=== PATIENT | male | born 1980 | race American Indian/Alaskan Native ===

== ENCOUNTER 2017-01-13 02:48 | Emergency (ER) | payer MEDICAID ==
[2017-01-13 03:46] LABS: Urine Drugs of Abuse Note Disclamer
[2017-01-13 03:50] LABS: Basophils % (Auto) 0.6 % (0.0-1.8); Eosinophils % (Auto) 1.3 % (0.0-4.3); Hematocrit 37.1 % (35.5-45.6); Hemoglobin 12.5 gm/dl (11.8-15.2); Mean Corpuscular HGB Conc 34 % (32-34); Mean Corpuscular Hemoglobin 28 pg (28-32); Mean Corpuscular Volume 84 fl (84-94); Platelet Count 340 K/mm3 (140-440); Red Blood Count 4.42 M/mm3 (3.65-5.03); Red Cell Distribution Width 13.5 % (13.2-15.2); White Blood Count 7.6 K/mm3 (4.5-11.0)
[2017-01-13 04:03] LABS: Bilirubin,Urine NEG (Negative); Blood,Urine NEG (Negative); Ketones,Urine NEG (Negative); Leukocyte Esterase,Urine NEG (Negative); Mucus,Urine FEW /HPF; Nitrite,Urine NEG (Negative); Protein,Urine <15 mg/dL mg/dL (Negative); RBC,Urine < 1.0 /HPF (0.0-6.0); WBC,Urine < 1.0 /HPF (0.0-6.0)
[2017-01-13 04:10] LABS: Anion Gap 17 mmol/L; Blood Urea Nitrogen 11 mg/dL (9-20); Calcium 9.1 mg/dL (8.4-10.2); Carbon Dioxide 25 mmol/L (22-30); Chloride 95.6 mmol/L (98-107); Glucose 104 mg/dL (75-100); Sodium 134 mmol/L (137-145)
[2017-01-13 08:06] VITALS: BP 135/82
--- NOTE | 2017-01-13 08:14 | Emergency Department Report ---
ED Psych HPI - General Chief Complaint: Psych Stated Complaint: MEDICAL CLEARANCE Time Seen by Provider: 01/13/17 08:11 Source: family Mode of arrival: Ambulatory - History of Present Illness Initial Comments: This patient was released from incarceration yesterday. Apparently he was on lockdown for psychosis and being treated with antipsychotic medications. Upon release he according to his has a court order for psychiatric hospitalization. He went to [place]. Requested medical clearance. Patient has no specific complaint at this time. He has a very distracted stair. He denies paranoid ideation. However, his states that he has been paranoid and psychotic. He however denies visual or auditory hallucinations. The nurse states he has been agitated. states the patient's diagnosis is bipolar disorder and schizophrenia. MD Complaint: other -: week(s) Associated Psychiatric Symptoms: other History of same: Yes Quality: constant Improves With: none Worsens With: none Context: other (recent incarceration) Associated Symptoms: denies other symptoms Treatments Prior to Arrival: other (see above) - Related Data Allergies Allergy/AdvReac Type Severity Reaction Status Date / Time aspirin Allergy Rash Verified 01/13/17 02:55 zinc Allergy Rash Verified 01/13/17 02:55 ED Review of Systems ROS: Stated complaint: MEDICAL CLEARANCE Other details as noted in HPI Comment: All other systems reviewed and negative (the patient denies any specific symptoms however limited due to acute psychosis) ED Past Medical Hx - Past Medical History Previous Medical History?: Yes Hx Psychiatric Treatment: Yes (Bipolar, Schizophrenia) - Surgical History Past Surgical History?: Yes Additional Surgical History: [place] Teeth - Social History Smoking Status: Current Some Day Smoker Substance Use Type: Marijuana ED Physical Exam - General Limitations: No Limitations General appearance: alert (hypervigilant), other (distracted and somewhat agitated) - Head Head exam: Present: atraumatic, normocephalic - Eye Eye exam: Present: normal appearance, PERRL, EOMI. Absent: scleral icterus - ENT ENT exam: Present: normal exam, mucous membranes moist - Neck Neck exam: Present: normal inspection. Absent: tenderness, meningismus - Respiratory Respiratory exam: Present: normal lung sounds bilaterally. Absent: respiratory distress - Cardiovascular Cardiovascular Exam: Present: regular rate, normal rhythm. Absent: systolic murmur, diastolic murmur, rubs, gallop - GI/Abdominal GI/Abdominal exam: Present: soft, normal bowel sounds. Absent: distended, tenderness, guarding, rebound, rigid - Rectal Rectal exam: Present: deferred - Extremities Exam Extremities exam: Present: normal inspection - Back Exam Back exam: Present: normal inspection - Neurological Exam Neurological exam: Present: alert, oriented X3, CN II-XII intact, normal gait. Absent: motor sensory deficit - Psychiatric Psychiatric exam: Present: normal affect, normal mood - Skin Skin exam: Present: warm, dry, intact, normal color. Absent: rash ED Course Vital Signs 01/13/17 01/13/17 01/13/17 02:55 08:05 10:20 Temperature 99.0 F Pulse Rate 84 71 Respiratory 18 20 18 Rate Blood Pressure 137/88 135/82 [Right] O2 Sat by Pulse 100 100 Oximetry - Reevaluation(s) Reevaluation #1: The patient was given Geodon. He was cooperative with this. Still awaiting mental health counselor for assessment. 1013 is initiated. 01/13/17 11:45 ED Medical Decision Making - Lab Data Result diagrams: 01/13/17 03:31 01/13/17 03:31 Laboratory Results - last 24 hr 01/13/17 01/13/17 01/13/17 03:31 03:31 03:31 WBC 7.6 RBC 4.42 Hgb 12.5 Hct 37.1 MCV 84 MCH 28 MCHC 34 RDW 13.5 Plt Count 340 Lymph % (Auto) 23.4 [place] % (Auto) 13.8 H Eos % (Auto) 1.3 Baso % (Auto) 0.6 Lymph # 1.8 [place] # 1.0 H Eos # 0.1 Baso # 0.0 Seg Neutrophils % 60.9 Seg Neutrophils # 4.6 Sodium 134 L Potassium 4.0 Chloride 95.6 L Carbon Dioxide 25 Anion Gap 17 BUN 11 Creatinine 1.0 Estimated GFR > 60 BUN/Creatinine Ratio 11.00 Glucose 104 H Calcium 9.1 Urine Color Urine Turbidity Urine pH Ur Specific [place] Urine Protein Urine Glucose (UA) Urine Ketones Urine Blood Urine Nitrite Urine Bilirubin Urine Urobilinogen Ur Leukocyte Esterase Urine WBC (Auto) Urine RBC (Auto) Urine Mucus Urine Opiates Screen Urine Methadone Screen Ur Barbiturates Screen Ur Phencyclidine Scrn Ur Amphetamines Screen U Benzodiazepines Scrn Urine Cocaine Screen U Marijuana (THC) Screen Drugs of Abuse Note Plasma/Serum Alcohol < 0.01 01/13/17 01/13/17 Unknown Unknown WBC RBC Hgb Hct MCV MCH MCHC RDW Plt Count Lymph % (Auto) [place] % (Auto) Eos % (Auto) Baso % (Auto) Lymph # [place] # Eos # Baso # Seg Neutrophils % Seg Neutrophils # Sodium Potassium Chloride Carbon Dioxide Anion Gap BUN Creatinine Estimated GFR BUN/Creatinine Ratio Glucose Calcium Urine Color Yellow Urine Turbidity Clear Urine pH 6.0 Ur Specific [place] 1.016 Urine Protein <15 mg/dl Urine Glucose (UA) Neg Urine Ketones Neg Urine Blood Neg Urine Nitrite Neg Urine Bilirubin Neg Urine Urobilinogen 4.0 Ur Leukocyte Esterase Neg Urine WBC (Auto) < 1.0 Urine RBC (Auto) < 1.0 Urine Mucus Few Urine Opiates Screen Presumptive negative Urine Methadone Screen Presumptive negative Ur Barbiturates Screen Presumptive negative Ur Phencyclidine Scrn Presumptive negative Ur Amphetamines Screen Presumptive negative U Benzodiazepines Scrn Presumptive negative Urine Cocaine Screen Presumptive negative U Marijuana (THC) Screen Presumptive negative Drugs of Abuse Note Disclamer Plasma/Serum Alcohol Critical care attestation.: If time is entered above; I have spent that time in minutes in the direct care of this critically ill patient, excluding procedure time. ED Disposition Clinical Impression: Acute psychosis Schizophrenia Qualifiers: Schizophrenia type: unspecified Qualified Code(s): F20.9 - Schizophrenia, unspecified Disposition: DC/TX PSY HOSP/PSY UNIT Is pt being admited?: No Does the pt Need Aspirin: No Condition: Stable Referrals: PRIMARY CARE, [Primary Care Provider] - 3-5 Days Time of Disposition: 11:46
[2017-01-13] MEDS ORDERED: WATER FOR INJ (PF) 10 ML ONE (11:15)
[2017-01-13] MEDS ORDERED: GEODON IM PRN ×2 (11:17→11:47)
[2017-01-13] MEDS ORDERED: TYLENOL PO PRN (11:47)
[2017-01-13] MEDS ORDERED: ALUM-MAG HYDROX-SIMETH 200-200-20MG/5ML PO PRN (11:47)
[2017-01-13] MEDS ORDERED: MILK OF MAGNESIA PO PRN (11:47)
[2017-01-13] MEDS ORDERED: COGENTIN IM STA (11:54)
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
[2017-01-13] MEDS ORDERED: BENADRYL IM ONE (16:26)
== END 2017-01-13 19:21 ==
LOC: EEVIPCON 02:48 → ED 02:48
DX: F23 Brief psychotic disorder (principal); F20.9 Schizophrenia, unspecified; F31.9 Bipolar disorder, unspecified; F17.200 Nicotine dependence, unspecified, uncomplicated; F12.10 Cannabis abuse, uncomplicated; Z88.6 Allergy status to analgesic agent; Z88.8 Allergy status to other drugs, medicaments and biological substances
CPT/HCPCS: 36415; 80048; 80307; 81001; 82550; 85025; 96372; 99285; G0480; J0515; J1200; J3486; 80320

== ENCOUNTER 2017-01-21 16:19 | Emergency (ER) | payer MEDICAID ==
[2017-01-21] MEDS ORDERED: PEPCID PO ONE (17:21)
[2017-01-21] MEDS ORDERED: DELTASONE PO ONE (17:21)
[2017-01-21] MEDS ORDERED: BENADRYL PO ONE (17:22)
[2017-01-21] MEDS ORDERED: NACL 0.9% 1000 ML 1,000 ML IV ONE ×2 (17:31→19:26)
--- NOTE | 2017-01-21 17:32 | Emergency Department Report ---
ED Psych HPI - General Chief Complaint: Allergic Reaction Stated Complaint: ALLERGIC REACTION/DIIB Time Seen by Provider: 01/21/17 16:56 Source: patient Mode of arrival: Ambulatory - History of Present Illness Initial Comments: Patient is a 36-year-old male recently diagnosed with bipolar and schizophrenia coming to us from [place] off for possible medication allergy. Patient reports he 's been started on invega, Risperdal, and Depakote and now is complaining of diffuse edema to his face arms and legs, and a uneasy feeling in his throat. Patient reports he is complaining about the symptoms for the last 2 weeks but was told it was just side effects of the medication. Today the patient was moved from the main floor to the loft and with these complications and her felt uncomfortable treating the patient and sent the patient to the ER for evaluation. Otherwise no fevers, chills, nausea, vomiting, dizziness, excessive drooling, dysphagia, dysphonia, shortness of breath, chest pain, abdominal pain, diarrhea, trauma, or sick contacts. - Related Data Previous Rx's Medication Instructions Recorded Last Taken Type Benztropine [Cogentin] 2 mg PO BID #14 tab 01/21/17 Unknown Rx Allergies Allergy/AdvReac Type Severity Reaction Status Date / Time aspirin Allergy Rash Verified 01/13/17 02:55 zinc Allergy Rash Verified 01/13/17 02:55 ED Review of Systems ROS: Stated complaint: ALLERGIC REACTION/DIIB Other details as noted in HPI Comment: All other systems reviewed and negative ED Past Medical Hx - Past Medical History Hx Psychiatric Treatment: Yes (Bipolar, Schizophrenia) - Surgical History Additional Surgical History: [place] Teeth - Social History Smoking Status: Never Smoker Substance Use Type: None - Medications Home Medications: Home Medications Medication Instructions Recorded Confirmed Last Taken Type Benztropine [Cogentin] 2 mg PO BID #14 tab 01/21/17 Unknown Rx ED Physical Exam - General Limitations: No Limitations General appearance: alert, in no apparent distress - Head Head exam: Present: atraumatic, normocephalic, other (swollen face) - Eye Eye exam: Present: normal appearance Pupils: Present: normal accommodation. Absent: irregular, unequal, miosis - ENT ENT exam: Present: mucous membranes moist - Neck Neck exam: Present: normal inspection. Absent: tenderness, meningismus - Respiratory Respiratory exam: Present: normal lung sounds bilaterally, other (speaking full sentences). Absent: respiratory distress, wheezes, rales, rhonchi, stridor - Cardiovascular Cardiovascular Exam: Present: normal rhythm, tachycardia, normal heart sounds. Absent: bradycardia, systolic murmur, diastolic murmur, rubs, gallop - GI/Abdominal GI/Abdominal exam: Present: soft, normal bowel sounds. Absent: distended, tenderness, guarding, rebound, rigid - Rectal Rectal exam: Present: deferred - Extremities Exam Extremities exam: Present: normal inspection, pedal edema, other (2 pitting edema extending to the knees bilaterally). Absent: tenderness - Back Exam Back exam: Present: normal inspection - Neurological Exam Neurological exam: Present: alert, oriented X3 - Psychiatric Psychiatric exam: Present: normal affect, normal mood - Skin Skin exam: Present: warm, dry, intact, normal color. Absent: rash ED Course Vital Signs 01/21/17 01/21/17 01/21/17 16:25 16:49 16:50 Temperature 99.0 F Pulse Rate 117 H 113 H Respiratory 22 16 Rate Blood Pressure 136/91 148/89 O2 Sat by Pulse 100 100 100 Oximetry 01/21/17 01/21/17 01/21/17 17:00 17:10 17:20 Temperature Pulse Rate 109 H 115 H 111 H Respiratory 21 12 15 Rate Blood Pressure 148/89 148/89 148/89 O2 Sat by Pulse 100 98 100 Oximetry 01/21/17 01/21/17 01/21/17 17:21 17:30 17:40 Temperature Pulse Rate 117 H 112 H Respiratory 22 24 22 Rate Blood Pressure 148/89 148/89 O2 Sat by Pulse 100 100 100 Oximetry 01/21/17 01/21/17 01/21/17 17:50 18:00 18:10 Temperature Pulse Rate 115 H 109 H Respiratory 21 11 L Rate Blood Pressure 148/89 148/89 148/89 O2 Sat by Pulse 100 100 100 Oximetry 01/21/17 01/21/17 01/21/17 18:20 18:30 18:40 Temperature Pulse Rate 104 H 112 H 109 H Respiratory Rate Blood Pressure 148/89 148/89 148/89 O2 Sat by Pulse 100 100 100 Oximetry 01/21/17 01/21/17 01/21/17 18:50 19:00 19:10 Temperature Pulse Rate 105 H 111 H 106 H Respiratory Rate Blood Pressure 148/89 148/89 148/89 O2 Sat by Pulse 100 100 100 Oximetry 01/21/17 19:20 Temperature Pulse Rate 105 H Respiratory Rate Blood Pressure 148/89 O2 Sat by Pulse 100 Oximetry ED Medical Decision Making - EKG Data -: EKG Interpreted by Me (18:05) EKG shows normal: sinus rhythm, axis (normal), intervals (QTc:448ms), ST-T waves ((-)STEMI) Rate: tachycardia (111 bpm) - Medical Decision Making Spoke with the medical professional, Holly [place], from [facility] today regarding Mr. Quintero again "allergic reaction ". She reports patient did have symptoms like this when she saw him in the past patient was started on Cogentin and his symptoms have had resolved. We discussed that we will discontinue the Risperdal and start the patient on Cogentin and patient to go back to the [facility]. Critical care attestation.: If time is entered above; I have spent that time in minutes in the direct care of this critically ill patient, excluding procedure time. ED Disposition Clinical Impression: Adverse effects of medication, Bipolar 1 disorder, Schizophrenia Disposition: DC/TX PSY HOSP/PSY UNIT Is pt being admited?: No Condition: Stable Instructions: Anaphylaxis (ED), Bipolar Disorder (ED), Schizophrenia (ED) Additional Instructions: PLEASE DISCONTINUE THE RISPERDAL Prescriptions: Benztropine [Cogentin] 2 mg PO BID #14 tab Referrals: PRIMARY CARE, [Primary Care Provider] - 3-5 Days
[2017-01-21 18:24] VITALS: BP 148/89
[2017-01-21] MEDS ORDERED: COGENTIN PO ONE (19:28)
== END 2017-01-21 20:25 ==
LOC: ED 16:19
DX: T50.905A Adverse effect of unspecified drugs, medicaments and biological substances, initial encounter (principal); F31.9 Bipolar disorder, unspecified; F20.9 Schizophrenia, unspecified; Y92.9 Unspecified place or not applicable
CPT/HCPCS: 93005; 93010; 96360; 96361; 99282; J7030; J7512

== ENCOUNTER 2017-01-24 23:04 | Emergency (ER) | payer MEDICAID ==
[2017-01-24 23:34] LABS: Urine Drugs of Abuse Note Disclamer
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
[2017-01-25 00:17] LABS: Blood Urea Nitrogen 10 mg/dL (9-20); Calcium 8.9 mg/dL (8.4-10.2); Carbon Dioxide 24 mmol/L (22-30); Chloride 101.3 mmol/L (98-107); Glucose 96 mg/dL (75-100); Potassium 4.3 mmol/L (3.6-5.0); Sodium 139 mmol/L (137-145)
[2017-01-25 00:18] LABS: Anion Gap 18 mmol/L
[2017-01-25 00:27] LABS: Basophils % (Auto) 0.5 % (0.0-1.8); Eosinophils % (Auto) 3.4 % (0.0-4.3); Hematocrit 34.6 % (35.5-45.6); Hemoglobin 11.8 gm/dl (11.8-15.2); Mean Corpuscular HGB Conc 34 % (32-34); Mean Corpuscular Hemoglobin 30 pg (28-32); Mean Corpuscular Volume 87 fl (84-94); Platelet Count 288 K/mm3 (140-440); Red Blood Count 3.99 M/mm3 (3.65-5.03); Red Cell Distribution Width 14.3 % (13.2-15.2); White Blood Count 7.8 K/mm3 (4.5-11.0)
[2017-01-25 00:28] LABS: Bilirubin,Urine NEG (Negative); Blood,Urine NEG (Negative); Ketones,Urine TR mg/dL (Negative); Leukocyte Esterase,Urine TR (Negative); Nitrite,Urine NEG (Negative); Protein,Urine <15 mg/dL mg/dL (Negative); Urobilinogen,Urine < 2.0 mg/dL (<2.0)
[2017-01-25 03:30] VITALS: BP 132/82
[2017-01-25] MEDS ORDERED: GEODON IM ONE ×2 (08:39→08:42)
[2017-01-25] MEDS ORDERED: WATER FOR INJ (PF) 10 ML ONE (08:40)
--- NOTE | 2017-01-25 09:18 | XRay Report ---
RIGHT SHOULDER: History: Right shoulder pain. Routine views demonstrate normal bony and soft tissue structures with normal joint alignment of the shoulder. IMPRESSION: Normal study.
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
--- NOTE | 2017-01-25 13:08 | Emergency Department Report ---
Blank Doc - Documentation Documentation: Patient has been accepted at [facility] by Dr. Valladares. Patient is awaiting transport.
--- NOTE | 2017-01-25 14:06 | Consultation ---
History of Present Illness - Reason for Consult Consult date: 01/25/17 Reason for consult: Mental Health Evaluation Requesting physician: AWAIS CLARK - Chief Complaint Chief complaint: "I want to get out of here" - History of Present Psychiatric Illness This is a 36-year-old Afro-[place] male who presents to the emergency department from someplace he calls "[facility]" which she says is an inpatient psychiatric facility. Today patient is calm, but uncooperative with a tangential thought process. He stated that he want to go back to "[facility]." I asked which PHP, he could not tell me. He kept saying, "Look at my chart, you know what to look for." He could not tell me why he came to [facility], also, he could not tell me who is the current President. Per staff, patient tried to leave the ER twice and security had to be called. Currently, he is on 1013. He is located in a more secured room. He did say he took Risperdal and Cogentin in the past. No gestures of SI/HI's and AVH's. Medications and Allergies Allergies Allergy/AdvReac Type Severity Reaction Status Date / Time aspirin Allergy Rash Verified 01/24/17 23:16 zinc Allergy Rash Verified 01/24/17 23:16 Home Medications Medication Instructions Recorded Confirmed Last Taken Type Depakote 250 mg PO BID 01/24/17 01/25/17 Unknown History Invega 39 mg IM QMONTH 01/24/17 01/25/17 Unknown History Past psychiatric history - Past Medical History Past Medical History: No medical history Past Surgical History: No surgical history - past Psychiatric treatment and history Psych: Schizophrenia psychiatric treatment history: Inpatient to [place]. Denies fam psy hx. - Social History Social history: other (Patient refused to say) Mental Status Exam - Vital signs Last Vital Signs Temp 98.8 F 01/25/17 03:29 Pulse 98 H 01/25/17 03:29 Resp 18 01/25/17 03:29 BP 132/82 01/25/17 03:29 Pulse Ox 98 01/25/17 03:29 - Exam Narrative exam: ROS (-) depression, (+) delusional Appearance: uncooperative Behavior: poor eye contact Speech: regular rate and tone Mood: "nothing wrong with me" Affect: constricted Thought Process: tangential Thought Content: no gestures of SI/HI's and AVH's, delusional Motor Activity: ambulatory Cognition: a/o x2 Insight: poor Judgment: poor Results Result Diagrams: 01/24/17 23:30 01/24/17 23:30 Abnormal lab results 01/24/17 01/24/17 Range/Units 23:26 23:30 Hct 34.6 L (35.5-45.6) % Cobb % (Auto) 10.5 H (0.0-7.3) % Urine WBC (Auto) 12.0 H (0.0-6.0) /HPF All other labs normal. Assessment and Plan Assessment and plan: Impression: Unspecified Psychotic DO. This is a 36-year-old Afro-[place] male who presents to the emergency department from someplace he calls "[facility]" which she says is an inpatient psychiatric facility. Today patient is calm, but uncooperative during assessment. He stated that he want to go back to "[facility]." I asked which PHP, he could not tell me. He kept saying, "Look at my chart, you know what to look for." No gestures of SI/HI's and AVH's. Patient received Geodon IM for agitation. DD: Schizophrenia, R/O Bipolar Recommendation/Plan: Continue 1013 with placement to [facility].
== END 2017-01-25 14:18 ==
LOC: EEVIPCON 23:04 → ED 23:04
DX: F23 Brief psychotic disorder (principal); F20.9 Schizophrenia, unspecified; F31.9 Bipolar disorder, unspecified; Z72.0 Tobacco use
CPT/HCPCS: 36415; 73030; 80048; 80307; 81001; 85025; 96372; 99285; G0480; J3486; 80320

== ENCOUNTER 2022-05-24 18:50 | Emergency (ER) | payer MEDICAID ==
[2022-05-24] MEDS ORDERED: levETIRAcetam 1000 MG/NS 0.75% 1,000 MG/100 ML BAG IV ONE (19:47)
[2022-05-24] MEDS ORDERED: SODIUM CHLORIDE 0.9% 1000 ML 1,000 ML IV ONE (19:49)
--- NOTE | 2022-05-24 19:54 | Emergency Department Report ---
<BROOK TSE - Last Filed: 05/24/22 20:13> ED Seizure HPI - General Chief Complaint: Seizure Stated Complaint: MEDICATION ADJUSTMENT Time Seen by Provider: 05/24/22 19:40 Source: patient, EMS Mode of arrival: Stretcher Limitations: No Limitations - History of Present Illness Initial Comments: 41 yo M with history of bipolar and schizophrenia with seizure who presented with a seizure that occurred this evening. Patient reported that he has not been taking his Depakote as he supposed to. When asked specifically how long he has not been taking either 1 was the last time he took his medicine that he said I do not know. Patient lives in a senior living. He denies any headache, chest pain, palpitation or shortness of breath. No fever or chills reported. No other modifying or associated factors reported. MD Complaint: seizure - Related Data Home Medications Medication Instructions Recorded Confirmed Last Taken Depakote 250 mg PO BID 01/24/17 01/25/17 Unknown Invega 39 mg IM QMONTH 01/24/17 01/25/17 Unknown Allergies Allergy/AdvReac Type Severity Reaction Status Date / Time aspirin Allergy Rash Verified 01/24/17 23:16 zinc Allergy Rash Verified 01/24/17 23:16 ED Review of Systems Comment: All other systems reviewed and negative Gastrointestinal: denies: nausea, vomiting Neurological: other (Seizure). denies: headache ED Past Medical Hx - Past Medical History Hx Seizures: Yes Hx Psychiatric Treatment: Yes (Bipolar, Schizophrenia) - Surgical History Additional Surgical History: Kol[place] Teeth - Social History Smoking Status: Current Some Day Smoker Substance Use Type: Alcohol - Medications Home Medications: Home Medications Medication Instructions Recorded Confirmed Last Taken Type Depakote 250 mg PO BID 01/24/17 01/25/17 Unknown History Invega 39 mg IM QMONTH 01/24/17 01/25/17 Unknown History ED Physical Exam - General Limitations: No Limitations General appearance: alert, postictal - Head Head exam: Present: normal inspection - Eye Eye exam: Present: normal appearance Pupils: Present: normal accommodation - ENT ENT exam: Present: normal exam, normal orophraynx, mucous membranes moist - Neck Neck exam: Present: normal inspection, full ROM. Absent: tenderness - Respiratory Respiratory exam: Present: normal lung sounds bilaterally. Absent: respiratory distress, chest wall tenderness, accessory muscle use - Cardiovascular Cardiovascular Exam: Present: regular rate, normal rhythm, normal heart sounds - GI/Abdominal GI/Abdominal exam: Present: soft, normal bowel sounds. Absent: distended, tenderness - Extremities Exam Extremities exam: Present: normal inspection, normal capillary refill. Absent: tenderness, pedal edema - Back Exam Back exam: Absent: tenderness - Neurological Exam Neurological exam: Present: alert, oriented X3 - Psychiatric Psychiatric exam: Present: normal affect, normal mood - Skin Skin exam: Present: warm, normal color ED Medical Decision Making - Medical Decision Making Here with possible seizure -- but considering this patients age other differential such as stroke, myocardial infarction, hepatic encephalopathy, systemic infection with sepsis cannot be ruled out. In order to rule out those above we will go ahead and order CT scan of the brain, CBC, CMP, urinalysis, for any infectious process or electrolyte abnormality and thyroid panel for any hypo or hyper thyroidism. In the meantime we will go ahead and give immediate Keppra 1 g IV piggyback x1. ED Disposition Clinical Impression: Seizure, Noncompliance with medication regimen Disposition: HOME / SELF CARE / HOMELESS Is pt being admited?: No Does the pt Need Aspirin: No Condition: Stable Instructions: Seizure, Adult, [id number] Additional Instructions: It is very important that you take your seizure medicine as prescribed to prevent recurrent like this. Increase your daily fluid to help your hydration Call and schedule follow-up with your primary doctor or your neurologist in 3 to 5 days. You are prescribed Depakote for your seizures however, I have provided Keppra as an alternative. Call your neurologist to discuss this if Keppra is a good alternative for your seizures long-term. Take either the Depakote you have at home or the prescribed Keppra for seizures Please do not hesitate to call or return to emergency if your symptoms recur or worsen Referrals: TOBY RUBY MD [Referring] - 3-5 Days Time of Disposition: 20:13 <SHANNAN MEJIAS - Last Filed: 05/24/22 22:02> ED Review of Systems ROS: Stated complaint: MEDICATION ADJUSTMENT Other details as noted in HPI ED Course Vital Signs 05/24/22 19:21 Temperature 98.2 F Pulse Rate 89 Respiratory 18 Rate Blood Pressure 112/73 [Left] O2 Sat by Pulse 100 Oximetry ED Medical Decision Making - Lab Data Result diagrams: 05/24/22 20:38 05/24/22 20:38 - Medical Decision Making Patient signed out to me to reassess after labs result. Patient is sleeping but easily arousable. Denies complaints at this time. States he is noncompliant with his Depakote due to feared possible side effect of "brittle bones" as candy cated by his neurologist. Patient states he has never had Keppra in the past. Patient's labs reviewed and unremarkable. Keppra test is a send out and pending will likely to be negative since patient is not currently on Keppra. Depakote level is likely also to be negative since he admits to noncompliance. Patient will be prescribed a 1 month supply of Keppra and was informed to contact his neurologist to have a discussion as to whether this will be an appropriate alternative to his Depakote long-term. Critical care attestation.: If time is entered above; I have spent that time in minutes in the direct care of this critically ill patient, excluding procedure time. ED Disposition Does the pt Need Aspirin: No Time of Disposition: 22:02
[2022-05-24 20:54] LABS: Basophils % (Auto) 0.3 % (0.0-1.8); Eosinophils % (Auto) 0.3 % (0.0-4.3); Lymphocytes # (Auto) 0.9 K/mm3 (1.2-5.4); Lymphocytes % (Auto) 7.9 % (13.4-35.0); Mean Corpuscular HGB Conc 33 % (32-34); Mean Corpuscular Volume 84 fl (84-94); Monocytes # (Auto) 0.5 K/mm3 (0.0-0.8); Monocytes % (Auto) 4.4 % (0.0-7.3); Platelet Count 269 K/mm3 (140-440); Red Blood Count 4.64 M/mm3 (3.65-5.03); Red Cell Distribution Width 13.7 % (13.2-15.2)
[2022-05-24 21:18] LABS: Alanine Aminotransferase 20 units/L (7-56); Albumin 4.8 g/dL (3.9-5); BUN/Creatinine Ratio 7; Blood Urea Nitrogen 8 mg/dL (9-20); Calcium 9.4 mg/dL (8.4-10.2); Hemolysis Index 4
[2022-05-24 21:24] LABS: Free T4 (Free Thyroxine) 1.39 ng/dL (0.76-1.46)
[2022-05-24 23:28] VITALS: BP 109/66
== END 2022-05-24 23:28 | disposition home or self-care (01) ==
LOC: ED 18:50
DX: R56.9 Unspecified convulsions (principal); Z91.14 Patient's other noncompliance with medication regimen; F31.9 Bipolar disorder, unspecified; F17.200 Nicotine dependence, unspecified, uncomplicated; Z91.09 Other allergy status, other than to drugs and biological substances
CPT/HCPCS: 36415; 80053; 80177; 84439; 84443; 85025; 96374; 99284; J1953; J7030